=== PATIENT | male | born 1960 | race Hispanic/Latino ===

== ENCOUNTER 2019-06-14 02:02 | Inpatient (IN) | payer MEDICARE ==
[2019-06-14 02:28] LABS: #Basophils 0.1 thou/uL (0.0-0.2); #Eosinphils 0.1 thou/uL (0.0-0.7); #Lymphocytes 1.2 thou/uL (1.20-3.40); #Monocytes 1.4 thou/uL (0.11-0.59); #Neutrophils 10.6 thou/uL (1.40-6.50); %Basophils 0.5 % (0.0-1.0); %Eosinophils 0.5 % (0.0-10.0); %Lymphocytes 9.1 % (21.0-51.0); %Monocytes 10.8 % (0.0-10.0); %Neutrophils 79.2 % (42.0-75.0); Mean Corpuscular HGB CONC 31.3 g/dL (32.0-36.0); Mean Corpuscular Hemoglobin 23.9 pg (27.0-31.0); Mean Corpuscular Volume 76.1 fL (78.0-98.0); Mean Platelet Volume 9.9 fL (7.4-10.4); Platelet Count 271 thou/uL (130-400); RBC Distribution Width 17.5 % (11.5-14.5); Red Blood Cell (RBC) Count 3.77 mill/uL (4.70-6.10); White Blood Cell (WBC) Count 13.4 thou/uL (4.8-10.8)
[2019-06-14 02:48] LABS: ALT (SGPT) 30 U/L (8-55); AST (SGOT) 39 U/L (5-34); Albumin 3.3 g/dL (3.5-5.0); Alkaline Phosphatase 63 U/L (40-110); Anion Gap 16 mmol/L (10-20); BUN (Urea Nitrogen) 35 mg/dL (8.4-25.7); Bilirubin, Total 0.5 mg/dL (0.2-1.2); CK (CPK) 73 U/L (30-200); Calc. Creatinine Clearance 0 mL/min (70-130); Calcium 8.5 mg/dL (7.8-10.44); Carbon Dioxide 20 mmol/L (22-29); Chloride 107 mmol/L (98-107); Estimated GFR-MDRD 23; Globulin 3.1 g/dL (2.4-3.5); Glucose 223 mg/dL (70-105); Magnesium 1.9 mg/dL (1.6-2.6); Potassium 4.6 mmol/L (3.5-5.1); Protein, Total 6.4 g/dL (6.0-8.3); Sodium 138 mmol/L (136-145)
[2019-06-14 03:11] LABS: CKMB 1.3 ng/mL (0-6.6)
--- NOTE | 2019-06-14 04:08 | PDOC.FPRHP ---
- History of Present Illness Chief Complaint: Arrhythmia History of Present Illness: Pt is a 58 yo male who recently had an AICD placed 4 months ago and was woken twice in his sleep secondary to defibrillation. After the second he decided to be seen in the emergency department. This has never happened before. He also had worsening shortness of breath requiring oxygen in the emergency department. His LE edema was stable. He denied chest pain. In the ED cardiology was consulted who wanted Laurie consulted in the am. The interrogation revealed SVT vs Vtach. - Allergies/Adverse Reactions Allergies Allergy/AdvReac Type Severity Reaction Status Date / Time ciprofloxacin [From Cipro] Allergy Severe Nausea Unverified 06/14/19 04:09 - Home Medications Medication Instructions Recorded Confirmed Type Aspirin [Ecotrin] 81 mg PO DAILY 06/14/19 06/14/19 History Atorvastatin Calcium 80 mg PO HS 06/14/19 06/14/19 History Carvedilol [Coreg] 6.25 mg PO BID 06/14/19 06/14/19 History Clopidogrel Bisulfate [Plavix] 75 mg PO DAILY 06/14/19 06/14/19 History Fenofibrate Nanocrystallized 145 mg PO DAILY 06/14/19 06/14/19 History [Fenofibrate] Furosemide [Lasix] 40 mg PO DAILY 06/14/19 06/14/19 History Gabapentin 300 mg PO BID 06/14/19 06/14/19 History Insulin Glargine [Lantus] 20 units SC HS 06/14/19 06/14/19 History Isosorbide Mononitrate [Isosorbide 30 mg PO DAILY 06/14/19 06/14/19 History Mononitrate ER] Metoprolol Succinate [Toprol XL] 25 mg PO DAILY 06/14/19 06/14/19 History Pantoprazole Sodium [Protonix] 20 mg PO DAILY 06/14/19 06/14/19 History Polyethylene Glycol 3350 [Miralax] 17 gm PO DAILY PRN 06/14/19 06/14/19 History Sevelamer Carbonate 800 mg PO TID 06/14/19 06/14/19 History - History PMHx: CABG 2018, HTN, HLD, DM, CKD IV PSHx: R BKA, L Ankle FHx:non-contributory Social: Quit tobacco 2 years ago and smoked 1 ppd at most, denies drugs, denies alcohol - Review of Systems General: denies: fever/chills, weight/appetite/sleep changes Eyes: denies: eye pain, vision changes ENT: denies: nasal congestion, rhinorrhea Respiratory: denies: cough, congestion Cardiovascular: reports: edema. denies: chest pain, palpitation Gastrointestinal: denies: nausea, vomiting, diarrhea, constipation Genitourinary: denies: incontinence, dysuria Skin: denies: rashes, lesions Musculoskeletal: denies: pain, tenderness Neurological: denies: numbness, syncope Psychological: denies: anxiety, depression - Vital signs BP: 142/82 HR: 74 RR: 20 Tmax: 99.1 Pox: 99% on 2L Wt: 92 kg - Physical Exam Constitutional: NAD, awake, alert and oriented HEENT: PERRLA, EOMI Neck: FROM, trachea midline Heart: RRR, normal S1/S2 -Heart: 3 + pitting edema -Lungs: poor air movement, difficult to assess due to lack of ability to sit up Abdomen: soft, non-tender Musculoskeletal: normal structure, ROM grossly normal Neurological: no focal deficit, CN II-XII intact Skin: no rash/lesions, no jaundice Heme/Lymphatic: no purpura, no petechia Psychiatric: normal mood and affect, good judgment and insight FMR H&P: Results - Labs Result Diagrams: 06/14/19 02:16 06/14/19 02:16 Lab results: WBC 13.4 thou/uL (4.8-10.8) H 06/14/19 02:16 Hgb 9.0 g/dL (14.0-18.0) L 06/14/19 02:16 Hct 28.7 % (42.0-52.0) L 06/14/19 02:16 MCV 76.1 fL (78.0-98.0) L 06/14/19 02:16 Plt Count 271 thou/uL (130-400) 06/14/19 02:16 Neutrophils % 79.2 % (42.0-75.0) H 06/14/19 02:16 Sodium 138 mmol/L (136-145) 06/14/19 02:16 Potassium 4.6 mmol/L (3.5-5.1) 06/14/19 02:16 Chloride 107 mmol/L (98-107) 06/14/19 02:16 Carbon Dioxide 20 mmol/L (22-29) L 06/14/19 02:16 BUN 35 mg/dL (8.4-25.7) H 06/14/19 02:16 Creatinine 2.87 mg/dL (0.7-1.3) H 06/14/19 02:16 Glucose 223 mg/dL (70-105) H 06/14/19 02:16 Calcium 8.5 mg/dL (7.8-10.44) 06/14/19 02:16 Total Bilirubin 0.5 mg/dL (0.2-1.2) 06/14/19 02:16 AST 39 U/L (5-34) H 06/14/19 02:16 ALT 30 U/L (8-55) 06/14/19 02:16 Alkaline Phosphatase 63 U/L (40-110) 06/14/19 02:16 Creatine Kinase 73 U/L (30-200) 06/14/19 02:16 CK-MB (CK-2) 1.3 ng/mL (0-6.6) 06/14/19 02:16 B-Natriuretic Peptide 3764.7 pg/mL (0-100) H 06/14/19 02:16 Serum Total Protein 6.4 g/dL (6.0-8.3) 06/14/19 02:16 Albumin 3.3 g/dL (3.5-5.0) L 06/14/19 02:16 - Radiology Interpretation Chest x-ray Status: image reviewed by me, report reviewed by me Additional comment: perihilar congestion FMR H&P: A/P - Problem List (1) HTN (hypertension) Current Visit: Yes Status: Acute Code(s): I10 - ESSENTIAL (PRIMARY) HYPERTENSION (2) Hx of CABG Current Visit: Yes Status: Acute (3) HLD (hyperlipidemia) Current Visit: Yes Status: Acute Code(s): E78.5 - HYPERLIPIDEMIA, UNSPECIFIED (4) Diabetes mellitus Current Visit: Yes Status: Acute Code(s): E11.9 - TYPE 2 DIABETES MELLITUS WITHOUT COMPLICATIONS (5) CKD (chronic kidney disease), stage IV Current Visit: Yes Status: Acute Code(s): N18.4 - CHRONIC KIDNEY DISEASE, STAGE 4 (SEVERE) (6) Congestive heart failure Current Visit: Yes Status: Acute Code(s): I50.9 - HEART FAILURE, UNSPECIFIED - Plan # Arrhythmia SVT vs V-Tach - consulted cards; appreciate recs - consult Dr. Sullivan, placed AICD - amiodarone initiated # Acute on Chronic Heart Failure - lasix given - continue home meds # HTN - continue home meds # HLD - continue home meds # DM - continue home meds # CKD IV - stable Day team will restart home medications, appreciate their time. Dispo: admit to tele inpatient FMR H&P: Upper Level - Pertinent history 58 year old male presents after his AICD fired while sleeping two times. After first time AICD fired, patient went back to sleep. Upon the second time firing, patient decided he ought to seek care. Patient denies any chest pain. He endorses shortness of breath significant enough that it is inhibiting him from being able to speak in full sentences. He can barely get one to two words out without becoming short of breath. Patient endorses lower extremity swelling, although he states it is not much worse than it has been in the past. Patient denies cough, congestion, fever, chills. Patient had AICD placed approximately 4 months ago. His primary electrical manufacturing technician is Dr. Mcgrath. Dr. Gonzalez was consulted down in ED and recommends patient be started on amiodarone drip and advised that Dr. Sullivan be called in the morning. Patient was seen 12/2018 at which time he was noted to have EF 15-20%. Patient has AICD. He was not wearing lifevest regularly prior to last visit. Patient noted to have epileptiform activity on EEG during hospitalization in 2018. He was started on Keppra at that time. - Pertinent findings General: Alert and oriented x3. Diaphoretic. Difficulty speaking in full sentence without becoming short of breath. HEENT: Diaphoretic. MMM. Card: Irregular rhythm. No murmur. Resp: Decreased breath sounds throughout. Mild coarse rhonchi, although very difficult to appreciate given he was having difficulty taking deep breaths. Short of breath with speaking. Ext: 2+ pitting edema of LLE. AKA of RLE. Skin: No appreciable rashes. - Plan Date/Time: 06/14/19 5511 Lisa De Leonon, have evaluated this patient and agree with findings/plan as outlined by international project engineer resident. Pertinent changes/additions are listed here. Acute hypoxic respiratory failure 2/2 Acute on chronic HFrEF - Requiring 2L NC - BNP 3764 - CXR with pulmonary edema, no evidence of pneumonia - Strict I&O's, daily weights - Fluid restriction 1800 mL - HH diet - Echo 11/2018 with EF 15-20% - AICD in place Nonsustained tachycardia - SVT vs. VT; unable to determine from interrogation per ED physician - Dr. Gonzalez consulted; Amiodarone drip started - Consult Laurie AM - AICD placed 4 months ago - Arrhythmia noted on auscultation - EKG - AICD fired x2 DM type II - Noncompliant with medications - Restart home medications - ACHS accuchecks; adjust medications as necessary - CC diet HTN - Continue home medications HLD - Continue home medications CAD s/p CABG - Continue home medications CKD stage IV - BUN 33, Cr 2.87 - GFR 23 - Avoid nephrotoxic agents Demand ischemia - Trop elevated to 0.063, continue to trend - Likely 2/2 CHF exacerbation and CKD Microcytic anemia - Hg 9.0, Hct 28.7 - MCV 76.1 - Iron studies if not done previously - Consider FOBT/recommend outpatient colonoscopy if not UTD Leukocytosis - No obvious sign of infection - Likely leukamoid reaction - No left shift, continue to trend DVT PPX: SCD's Code status: Full Dispo: Admit to telemetry. Anticipate LOS >48 hours. Addendum - Attending - Attending Attestation Date/Time: 06/14/19 3219 I personally evaluated the patient and discussed the management with Dr. Soto /Lei. I agree with the History, Examination, Assessment and Plan documented above with any addition or exceptions noted below.
[2019-06-14] MEDS ORDERED: Amiodarone 150 MG, Admixture Fee 1 EACH in Dextrose 5% in Water 100 ML IVPB SCH (04:15)
[2019-06-14] MEDS ORDERED: Amiodarone 150 MG/3 ML VIAL ONE (04:22)
[2019-06-14 06:00] LABS: Troponin I 0.048 ng/mL (< 0.028)
--- NOTE | 2019-06-14 07:19 | RAD ---
Exam: Chest one view HISTORY:Pain. Comparison: 12/13/2018 FINDINGS: Cardiac silhouette:Persistent cardiomegaly. Stable sternotomy wires. Pacemaker: Interval placement of a single lead right-sided pacemaker with lead termination in the reg ion right ventricle. Aorta: Unremarkable Pulmonary vessels: Normal Costophrenic angles: Clear LUNGS: No masses or consolidation. Pneumothorax: None Osseous abnormalities: None IMPRESSION: No acute cardiopulmonary process.
[2019-06-14 08:42] LABS: Troponin I 0.055 ng/mL (< 0.028)
[2019-06-14 08:46] LABS: Phosphorus 3.7 mg/dL (2.3-4.7)
[2019-06-14] MEDS ORDERED: HumaLOG 300 UNITS/3 ML VIAL SC PRN (08:53)
[2019-06-14] MEDS ORDERED: Dextrose 50% Abboject 50 ML SYRINGE SLOW IVP PRN (08:53)
[2019-06-14] MEDS ORDERED: Dextrose 5% in Water 1,000 ML IV PRN (08:53)
[2019-06-14 11:19] VITALS: BMI 31.2
[2019-06-14] MEDS ORDERED: Furosemide 40 MG/4 ML VIAL SLOW IVP SCH ×2 (11:25→21:00)
[2019-06-14] MEDS ORDERED: Polyethylene Glycol 3350 17 GM Packet PO PRN (11:25)
[2019-06-14] MEDS ORDERED: Clopidogrel Bisulfate 75 MG TAB PO SCH (11:30)
[2019-06-14] MEDS ORDERED: Carvedilol 6.25 MG TAB PO SCH (11:30)
[2019-06-14] MEDS ORDERED: Aspirin 81 mg Enteric Coated Tablet PO SCH (11:30)
--- NOTE | 2019-06-14 11:37 | CON ---
DATE OF CONSULTATION: 06/14/2019 ADDITIONAL REFERRING PHYSICIAN: Dr. Mack, ER physician HISTORY OF PRESENT ILLNESS: I am seeing Mr. Mcneal at our [facility] emergency room as an Electrophysiology solutions market consultant. His problems are: 1. Fast ventricular tachycardia with cycle length 210 to 240 milliseconds, prompting ICD shock. 2. History of chronic systolic congestive heart failure with ischemic cardiomyopathy. a. 2D echo from 12/15/2018 reveals LVEF 15% to 20%, mild LVH, mild MR, moderate left atrial enlargement, mild TR. b. Currently he has elevated BNP, possible fluid overload. c. CABG x2 vessels in 2009. 3. Peripheral vascular disease. a. Poorly healing ulcers with right BKA. b. Advanced distal disease on angiogram, 09/20/2018, bilaterally. 4. Status post single-chamber ICD implant on February 06, 2019, of [facility] [employer] device. 5. History of renal insufficiency with a BUN 23 and creatinine 2.7 in December 2018 and currently at baseline. 6. History of RV dysfunction. 7. History of seizure disorder. 8. History of diabetes. 9. Hypertension. ALLERGIES: NONE. MEDICATIONS: At home included 1. Hydralazine. 2. Carvedilol 6.25 mg twice a day. 3. Gabapentin. 4. Sevelamer. 5. Clopidogrel 75 mg daily. 6. Fenofibrate. 7. Pantoprazole. 8. Lipitor. SUBJECTIVE: Mr. Mcneal was admitted through the ER due to an ICD shock which occurred last night, woke him up from his sleep. He did not feel good today before, overall with generalized weakness. He denies fever or cough. He denied angina, but had some mild fluid overload signs with lower extremity edema. His weight remained steady according to him. He has had no additional gastrointestinal or respiratory symptoms. Rest of 12-point system otherwise unremarkable. In the ER, he was noted to have frequent PVCs and short nonsustained ventricular run was also noted. He was started on IV amiodarone and since he is a stable. PAST MEDICAL HISTORY: As above. 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 SOCIAL HISTORY: The patient has history of smoking, quit in 2018. Denies EtOH or drug abuse. FAMILY HISTORY: Noncontributory. PHYSICAL EXAMINATION: VITAL SIGNS: Blood pressure 131/81, heart rate 78, respiration is 20, oxygen saturation is 96%. GENERAL: Alert, oriented man, in no apparent distress. NECK: Supple. Jugular veins are slightly distended. CHEST: Coarse without crackles. HEART: Sounds are regular to rate and rhythm with occasional ectopy heard. No murmur or gallop. ABDOMEN: Benign. Bowel sounds are positive. EXTREMITIES: Lower extremity without clubbing or cyanosis. Right BKA appreciated. Lower extremity edema is noted on the left lower extremity. SKIN: Also left precordial ICD insertion is well healed. NEUROLOGIC: He is nonfocal. MUSCULOSKELETAL: No joint swelling or deformities apart from the BKA. SKIN: Without rash. Midsternal scar is also well healed. LABORATORY DATA: EKG reviewed, revealing sinus rhythm, rate of 86 beats per minute with frequent monomorphic PVCs. The chest x-ray shows no acute cardiopulmonary process. The white count is 13.4, hemoglobin 9, platelet count is 271. Sodium 138, potassium 4.6, BUN is 35, creatinine 2.87. AST and ALT are 39 and 30. BNP is 3764. Troponin I 0.063, 0.048, 0.055. ASSESSMENT AND PLAN: Mr. Mcneal is a 58-year-old man with history of chronic systolic congestive heart failure with ischemic cardiomyopathy, prior bypass grafting. His LVEF is 15% to 20% on most recent echo available to me. He has underwent a prophylactic ICD implantation in last January with a single-chamber [facility] device. He received ICD shocks with two ventricular tachycardia based on the ICD interrogation reviewed today. The device is otherwise functioning adequately. Another ventricular tachycardia episodes are noted apart from this morning's on June 01, which was not symptomatic and was shock terminated. Nonsustained ventricular tachycardia episodes are also seen. The VT episodes are rapid with cycle length of 210 to 240 milliseconds, but appears to be monomorphic. The shock promptly terminated the arrhythmia. Since he is doing well on initial IV amiodarone therapy, I think it is reasonable to continue that. Monitor QT prolongation and also monitor PVC burden which could have contributed to induction of his arrhythmia. The reason for the ICD shock is unclear, but possibly fluid overload could play a role. He has history of severely reduced LVEF and mild signs of fluid overload currently. Gentle diuresis could be reasonable. Further ischemic workup if felt appropriate as per Dr. Mcgrath. Single-chamber ICD currently with adequate function. Continue routine monitoring. Point borderline troponin I is possibly due to the ICD shock. Chronic renal insufficiency, stable. Diabetes, hypertension as per primary team. PLAN: Continue IV amiodarone over a day, then consider switching to p.o. amiodarone taper. Intermediate term of amiodarone therapy, consideration of weaning versus PVC ablation could be made in the future. We will follow up with you. Thanks for the consult. Job ID: [id number]
[2019-06-14] MEDS ORDERED: Isosorbide Mononitrate (ER) 30 MG TAB PO SCH (11:45)
[2019-06-14] MEDS ORDERED: Gabapentin 300 MG CAP PO SCH (11:45)
[2019-06-14] MEDS ORDERED: Fenofibrate Nanocrystallized 145 MG TAB PO SCH (11:45)
[2019-06-14] MEDS: Amiodarone 450 MG, Admixture Fee 1 EACH in Dextrose 5% in Water 250 ML IVPB SCH (14:11)
[2019-06-14] MEDS: Sevelamer Carbonate 800 MG TAB PO SCH ×2 (16:56→20:22)
[2019-06-14] MEDS: Carvedilol 6.25 MG TAB PO SCH (20:22)
[2019-06-14] MEDS: Atorvastatin Calcium 40 MG TAB PO SCH (20:22)
[2019-06-14] MEDS: Gabapentin 300 MG CAP PO SCH (20:23)
[2019-06-14] MEDS: Insulin Glargine 20 UNITS in Pre-Filled Syringe 1 EACH SC SCH (20:30)
[2019-06-15 04:51] LABS: #Eosinphils 0.3 thou/uL (0.0-0.7); #Lymphocytes 1.4 thou/uL (1.20-3.40); #Neutrophils 7.9 thou/uL (1.40-6.50); %Basophils 0.4 % (0.0-1.0); %Eosinophils 2.5 % (0.0-10.0); %Lymphocytes 13.4 % (21.0-51.0); %Monocytes 9.1 % (0.0-10.0); %Neutrophils 74.6 % (42.0-75.0); Hemoglobin 8.3 g/dL (14.0-18.0); Mean Corpuscular HGB CONC 32.5 g/dL (32.0-36.0); Mean Corpuscular Hemoglobin 24.5 pg (27.0-31.0); Mean Corpuscular Volume 75.5 fL (78.0-98.0); Mean Platelet Volume 10.3 fL (7.4-10.4); Platelet Count 243 thou/uL (130-400); RBC Distribution Width 17.4 % (11.5-14.5); Red Blood Cell (RBC) Count 3.37 mill/uL (4.70-6.10); White Blood Cell (WBC) Count 10.6 thou/uL (4.8-10.8)
[2019-06-15 05:30] LABS: Anion Gap 14 mmol/L (10-20); BUN (Urea Nitrogen) 42 mg/dL (8.4-25.7); Calc. Creatinine Clearance 31 mL/min (70-130); Calcium 8.9 mg/dL (7.8-10.44); Carbon Dioxide 21 mmol/L (22-29); Chloride 105 mmol/L (98-107); Estimated GFR-MDRD 19; Glucose 183 mg/dL (70-105); Magnesium 1.9 mg/dL (1.6-2.6); Sodium 136 mmol/L (136-145)
[2019-06-15] MEDS: Amiodarone 450 MG, Admixture Fee 1 EACH in Dextrose 5% in Water 250 ML IVPB SCH (07:13)
--- NOTE | 2019-06-15 07:39 | CON ---
DATE OF CONSULTATION: Another MRN for this same patient is [id number]. REASON FOR CONSULTATION: ICD shock. HISTORY OF PRESENT ILLNESS: Mr. Mcneal is a very pleasant 58-year-old gentleman, who comes to the hospital for receiving a shock from his AICD. He had his AICD placed last year. He had not received any therapies until yesterday. He actually had an appropriate shock. It was a fast ventricular rate that receives an AICD shock, but he has an ischemic cardiomyopathy with an EF at 15% to 20%. This was from an echo back in November. He had an acute NE last year. He has had bypass x2 in 2009. I have offered a heart catheterization on him several times, but he is not wanting to do it secondary to his renal insufficiency. His last creatinine was 2.7 in December of last year; however, today, it is a little bit higher at 2.89. He has been started on amiodarone drip already and has not had anymore VT or VF. He has several PVCs, which he has had in the past. PAST MEDICAL HISTORY: 1. Ischemic cardiomyopathy with an EF of 15% to 20%. 2. AICD placement last year. 3. Status post CABG in 2009. 4. Severe bilateral PVD, status post BKA. 5. Acute CVA. 6. Chronic kidney disease, stage 4. 7. Hypertension. PAST SURGICAL HISTORY: 1. Right BKA in September of last year. 2. CABG x2 in 2009. FAMILY HISTORY: Noncontributory. SOCIAL HISTORY: Quit smoking in 2018. No alcohol or drugs. OUTPATIENT MEDICATIONS: 1. Sevelamer. 2. MiraLAX. 3. Protonix 20 mg a day. 4. Toprol-XL 25 mg a day. 5. Isosorbide mononitrate 30 mg a day. 6. Lantus insulin 20 units subcutaneously at bedtime. 7. Gabapentin. 8. Lasix 40 mg a day. 9. Fenofibrate 145 mg a day. 10. Plavix 75 mg a day. 11. Atorvastatin 80 mg at bedtime. 12. Aspirin 81 a day. 13. Carvedilol 6.25 b.i.d. ALLERGIES: CIPRO GIVES HIM SEVERE NAUSEA. REVIEW OF SYSTEMS: A 12-point review of systems was done and was all negative unless stated in the history of present illness. PHYSICAL EXAMINATION: VITAL SIGNS: Temperature 98.0, pulse 62, respiratory rate 18, saturating 97% on room air, blood pressure 135/80. GENERAL: Awake, alert, and oriented x3, in no distress. HEENT: Normocephalic and atraumatic. NECK: Supple. LUNGS: Clear. CARDIOVASCULAR: S1 and S2. No S3 or S4. There is a grade 2/6 systolic murmur at the right upper sternal border. ABDOMEN: Soft. Positive bowel sounds. EXTREMITIES: 1+ edema in the left leg. Right BKA. SKIN: Warm and dry. LABORATORY DATA: Laboratory work was reviewed. CBC with a white count of 13, hemoglobin 9, hematocrit 28, platelet count of 271. Chemistry with a creatinine of 2.87, GFR of 23, glucose of 223, normal sodium and potassium at 4.6 potassium, phosphorus 3.7, magnesium 1.9. Troponin is indeterminate at 0.06, 0.04, and 0.05. BNP of 3764. Albumin of 3.3. EKG was reviewed. ICD was reviewed. He had VT, very fast, successfully converted to sinus with AICD shock. ASSESSMENT: 1. Sustained ventricular tachycardia. 2. Appropriate automatic implantable cardioverter-defibrillator discharge. 3. Ischemic cardiomyopathy, ejection fraction of 15% to 20%. 4. History of coronary artery disease. No acute coronary syndrome at this time. 5. Peripheral vascular disease. 6. Diabetes. 7. Hypertension. PLAN: 1. Agree with amiodarone. We will continue IV drip until tomorrow and switch to p.o. load at that time at 400 mg twice a day for 7 days, then 200 mg a day. 2. We will continue IV Lasix for now. He is mildly volume overload. Thank you for letting us to participate in the care of the patient. We will follow. Most likely, home in the next 48 hours. Job ID: [id number]
--- NOTE | 2019-06-15 07:47 | PDOC.FM ---
- Subjective Subjective: Doing well this morning, states feels much improved. No acute events overnight. Verbalized understanding of addition of Amio and appropriate titration of meds. States he also realizes he is heading towards dialysis, but unsure if he wants to pursue dialysis at this time and plans to discuss with . No Cp, SOB, n/v , fever/chills. Tolerating PO well. Ambulating with assist. - Objective MAR Reviewed: Yes Vital Signs & Weight: Vital Signs (12 hours) Temp Pulse Resp BP Pulse Ox 06/15/19 04:00 98.9 F 61 16 130/63 96 06/15/19 00:15 65 116/56 L 95 Weight Weight 89.267 kg I&O: 06/14/19 06/15/19 06/16/19 06:59 06:59 06:59 Intake Total 800 Output Total 560 Balance 240 Result Diagrams: 06/15/19 04:31 06/15/19 04:31 EKG Reviewed by me: Yes (occasional PVC, no acute events on Tele) Phys Exam - Physical Examination Constitutional: NAD (resting comfortably, sitting on side of bed) HEENT: moist MMs Neck: supple Respiratory: no wheezing, no rales, no rhonchi, clear to auscultation bilateral Cardiovascular: RRR, no significant murmur, no rub Gastrointestinal: soft, non-tender, no distention, positive bowel sounds R BKA Neurological: moves all 4 limbs Psychiatric: normal affect, A&O x 3 Dx/Plan (1) CKD (chronic kidney disease), stage IV Code(s): N18.4 - CHRONIC KIDNEY DISEASE, STAGE 4 (SEVERE) Status: Acute (2) Congestive heart failure Code(s): I50.9 - HEART FAILURE, UNSPECIFIED Status: Acute (3) Diabetes mellitus Code(s): E11.9 - TYPE 2 DIABETES MELLITUS WITHOUT COMPLICATIONS Status: Acute - Plan Plan: 58yo CM with h/o HFrEF, DMII, CKD IV presents for acute hypoxic respiratory failure 2/2 acute on chronic HFrEF and vtach s/p AICD shock #Acute hypoxic respiratory failure 2/2 acute on chronic HFrEF and vtach s/p AICD shock - AICD placed 4 months ago, had 2 shocks prior to presentation - Cards consulted from ED, placed on Amio gtt, known to Dr. Alcides, plan to transition to PO, cont diuresis, apprec recs - EP, Dr. Sullivan, consulted, agreed with [facility], [facility] recs - No acute events overnight, occasional PVC on tele - initially requiring O2, now >95% on 2L, will wean this AM - BNP 3764. CXR with pulm edema, no PNA - IV lasix, will transition back to PO this AM as appears euvolemic on exam - strict I's and O's. Fluid restriction, HH diet - cont other home HF meds #IDDMII - noncompliant with meds - cont home regime - Hyperglycemic protocol with ACHS accuchecks #PEDRITO on CKD IV - Cr 2.87 -> 3.3 with GFR 19, likely slightly worse with Lasix and possible over diuresis, will transition back to PO lasix - Likely heading towards dialysis, pt has had this discussion before and plans to think it over with - will need close OP f/u, known to Dr. Rodriguez #Elevated trop - 0.063 -> 0.048. 2/2 HFrEf and CKD IV, stable #Multiple admissions, poor compliance, worsening chronic conditions - Palliative care consulted to assist with goals of care - CM, apprec assistance #HTN, HLD, CAD s/p CABG - cont home meds #Microcytic anemia - chonic, stable Code: Full PCP: DIANN Moon IVF: SL Diet: CC, fluid restricted, HH VTE: SCDs Dispo: Admitted to telemetry. Transitioning to PO meds today. Improved. Anticipate discharge in next 1-2days. Addendum - Attending - Attending Attestation Date/Time: 06/15/19 8071 I personally evaluated the patient and discussed the management with Dr. Coles. I agree with the History, Examination, Assessment and Plan documented above with any addition or exceptions noted below.
[2019-06-15] MEDS: Sevelamer Carbonate 800 MG TAB PO SCH ×3 (09:27→20:53)
[2019-06-15] MEDS: Gabapentin 300 MG CAP PO SCH ×2 (09:27→20:51)
[2019-06-15] MEDS: Fenofibrate Nanocrystallized 145 MG TAB PO SCH (09:27)
[2019-06-15] MEDS: Furosemide 40 MG TAB PO SCH (09:28)
[2019-06-15] MEDS: Carvedilol 6.25 MG TAB PO SCH ×2 (09:28→20:52)
[2019-06-15] MEDS: Clopidogrel Bisulfate 75 MG TAB PO SCH (09:28)
[2019-06-15] MEDS: Aspirin 81 mg Enteric Coated Tablet PO SCH (09:28)
[2019-06-15] MEDS: HumaLOG 300 UNITS/3 ML VIAL SC PRN ×2 (09:29→11:46)
[2019-06-15] MEDS: Isosorbide Mononitrate (ER) 30 MG TAB PO SCH (09:29)
[2019-06-15] MEDS ORDERED: Amiodarone 200 MG TAB PO SCH (12:15)
--- NOTE | 2019-06-15 13:24 | PDOC.EP ---
- Subjective Date: 06/15/19 Time: 08:00 Interval History: follow up for VT, ICD shocks. Patient voices not ICD or rhythm related complaints today. - Review of Systems Constitutional: denies: chills, fever, malaise, sweats, weakness, other Cardiology: denies: chest pain, edema, heart racing, light headedness, passing out Gastrointestinal: denies: abdominal pain, constipation, diarrhea, nausea, vomitting - Objective Allergies/Adverse Reactions: Allergies Allergy/AdvReac Type Severity Reaction Status Date / Time ciprofloxacin [From Cipro] Allergy Severe Nausea Verified 06/14/19 12:21 Current Medications Amiodarone HCl (Cordarone) 400 mg PO BID [facility] Amiodarone HCl (Cordarone) 400 mg PO NOW [facility] Stop: 06/15/19 14:15 Last Admin: 06/15/19 12:21 Dose: 400 mg Aspirin (Ecotrin) 81 mg PO DAILY [facility] Last Admin: 06/15/19 09:28 Dose: 81 mg Atorvastatin Calcium (Lipitor) 80 mg PO [facility] Last Admin: 06/14/19 20:22 Dose: 80 mg Carvedilol (Coreg) 6.25 mg PO BID [facility] Last Admin: 06/15/19 09:28 Dose: 6.25 mg Clopidogrel Bisulfate (Plavix) 75 mg PO DAILY [facility] Last Admin: 06/15/19 09:28 Dose: 75 mg Dextrose/Water (Dextrose 50%) 25 gm SLOW IVP PRN PRN PRN Reason: Hypoglycemia Fenofibrate (Tricor) 145 mg PO DAILY [facility] Last Admin: 06/15/19 09:27 Dose: 145 mg Furosemide (Lasix) 40 mg PO DAILY [facility] Last Admin: 06/15/19 09:28 Dose: 40 mg Gabapentin (Neurontin) 300 mg PO BID [facility] Last Admin: 06/15/19 09:27 Dose: 300 mg Glucagon (Glucagon) 1 mg IM PRN PRN PRN Reason: Hypoglycemia Dextrose/Water (D5w) 1,000 mls @ 0 mls/hr IV .Q0M PRN PRN Reason: Hypoglycemia Insulin Glargine 20 units/ (Miscellaneous Medication) 0.2 mls @ 0 mls/hr SC [facility] Last Admin: 06/14/19 20:30 Dose: 0.2 mls Insulin Human Lispro (Humalog) 0 units SC .MILD SLIDING SCALE PRN PRN Reason: Mild Correctional Scale Last Admin: 06/15/19 11:46 Dose: 2 unit Insulin Human Lispro (Humalog) 0 units SC .BEDTIME SLIDING SC PRN PRN Reason: Bedtime Correctional Scale Isosorbide Mononitrate (Imdur Er) 30 mg PO DAILY [facility] Last Admin: 06/15/19 09:29 Dose: 30 mg Pantoprazole Sodium (Protonix) 40 mg PO DAILY [facility] Last Admin: 06/15/19 09:28 Dose: 40 mg Polyethylene Glycol (Miralax) 17 gm PO DAILYPRN PRN PRN Reason: Constipation Sevelamer Carbonate (Renvela) 800 mg PO TID [facility] Last Admin: 06/15/19 09:27 Dose: 800 mg Sodium Chloride (Flush - Normal Saline) 10 ml IVF Q12HR [facility] Last Admin: 06/15/19 09:30 Dose: 10 ml Sodium Chloride (Flush - Normal Saline) 10 ml IVF PRN PRN PRN Reason: Saline Flush Vital Signs & Weight: Vital Signs Temp Pulse Resp BP Pulse Ox 06/15/19 09:03 97.8 F 62 20 123/68 93 L 06/15/19 08:20 96 06/15/19 04:00 98.9 F 61 16 130/63 96 Weight 196 lb 12.8 oz I/O: I/O 06/14/19 06/15/19 06/16/19 06:59 06:59 06:59 Intake Total 800 Output Total 560 Balance 240 - Physical Exam General: alert & oriented x3, appears well, no apparent distress, speech clear, affect appropriate HEENT: mucus membranes moist, normocephaly Neck: supple neck, midline trachea, no JVD/HJR Cardiology: regular rate and rhythm, no murmur, PMI nondisplaced Lungs: clear to auscultation, normal breath sounds, no wheeze, rales, rhonchi Neurology: cranial nerve 2-12 intact, sensory function intact, no lateralizing findings - Labs Result Diagrams: 06/15/19 04:31 06/15/19 04:31 - EKG Interpretation EKG Method: Telemetry EKG shows: Sinus rhythm (PVCs) - Assessment/Plan Assessment/Plan: 1. Fast ventricular tachycardia with cycle length 210 to 240 milliseconds, prompting ICD shock. 2. History of chronic systolic congestive heart failure with ischemic cardiomyopathy. a. 2D echo from 12/15/2018 reveals LVEF 15% to 20%, mild LVH, mild MR, moderate left atrial enlargement, mild TR. b. Currently he has elevated BNP, possible fluid overload. c. CABG x2 vessels in 2009. 3. Peripheral vascular disease. a. Poorly healing ulcers with right BKA. b. Advanced distal disease on angiogram, 09/20/2018, bilaterally. 4. Status post single-chamber ICD implant on February 06, 2019, of [facility] [employer] device. 5. Renal insufficiency with a BUN 23 and creatinine 2.7 in December 2018 and currently at baseline. 6. Hypertension. PVCs and rare short NSVT runs seen on tele overnight. No sustained events or defibrillations required. Continue amiodarone loading. QT ~400msec
--- NOTE | 2019-06-15 15:59 | PDOC.PALCO ---
Palliative Care Consult - Consult Details Requesting Physician: Dr Coles Reason for Consult: goals of care, assistance with communication prognosis/ disease Family Members Present: None - Allergies Allergies/Adverse Reactions: Allergies Allergy/AdvReac Type Severity Reaction Status Date / Time ciprofloxacin [From Cipro] Allergy Severe Nausea Verified 06/14/19 12:21 - Objective Vital Signs: Vital Signs - Most Recent Temp Pulse Resp BP Pulse Ox 97.8 F 61 18 127/70 97 06/15/19 11:42 06/15/19 11:42 06/15/19 11:42 06/15/19 11:42 06/15/19 11:42 - Plan/Recommendations Plan: Conversation with patient in relation to disease progression and goal of care with consideration of multiple morbidities. Patient self reported non compliance with medication in the past and hesitation of eventual dialysis. Expressed uncertainty of his consistency if he required dialysis for management of renal disease. Consideration may be given to having Sharyn Ramirez with the mobile team / If his PCP is a [facility] PCP Sharyn Ramirez [employer] may follow. This may help with initially improving compliant habits for medication management. Patient aware that compliancy with medications, medical appointments and diet are pivotal with giving distance to need for dialysis. If Mr Mcneal eventually transition to need for dialysis we discussed the impact on daily living, he also is aware that if at any time he desires he could stop and elect Hospice to manage symptoms. Will place consult for teaching related to diet, reinforce optimal food choices not only for diabetic but renal function as well. [60] minutes spent on this encounter with >50% of the time in counseling and coordination of care. Thank you for this very appropriate consult.
--- NOTE | 2019-06-15 18:01 | PDOC.CPN ---
- Subjective Date: 06/15/19 Time: 17:59 Interval history: Doing better. Feels well. - Review of Systems General: denies: fever/chills, weight/appetite/sleep changes, night sweats, fatigue Respiratory: denies: cough, congestion, shortness of breath, exercise intolerance Cardiovascular: denies: chest pain, palpitation, edema, paroxysmal nocturnal dyspnea, orthopnea Gastrointestinal: denies: nausea, vomiting, diarrhea, constipation, abd pain, GI bleeding Musculoskeletal: denies: pain, tenderness, stiffness, swelling, arthritis/ arthralgias Neurological: denies: numbness, syncope, seizure, weakness - Objective Allergies/Adverse Reactions: Allergies Allergy/AdvReac Type Severity Reaction Status Date / Time ciprofloxacin [From Cipro] Allergy Severe Nausea Verified 06/14/19 12:21 Visit Medications: Current Medications Amiodarone HCl (Cordarone) [address] [facility] Aspirin (Ecotrin) [address] [facility] Last Admin: 06/15/19 09:28 Dose: 81 mg Atorvastatin Calcium (Lipitor) 80 mg PO [facility] Last Admin: 06/14/19 20:22 Dose: 80 mg Carvedilol (Coreg) 6.[address] [facility] Last Admin: 06/15/19 09:28 Dose: 6.25 mg Clopidogrel Bisulfate (Plavix) [address] [facility] Last Admin: 06/15/19 09:28 Dose: 75 mg Dextrose/Water (Dextrose 50%) 25 gm SLOW IVP PRN PRN PRN Reason: Hypoglycemia Fenofibrate (Tricor) [address] [facility] Last Admin: 06/15/19 09:27 Dose: 145 mg Furosemide (Lasix) [address] [facility] Last Admin: 06/15/19 09:28 Dose: 40 mg Gabapentin (Neurontin) [address] [facility] Last Admin: 06/15/19 09:27 Dose: 300 mg Glucagon (Glucagon) 1 mg IM PRN PRN PRN Reason: Hypoglycemia Dextrose/Water (D5w) 1,000 mls @ 0 mls/hr IV .Q0M PRN PRN Reason: Hypoglycemia Insulin Glargine 20 units/ (Miscellaneous Medication) 0.2 mls @ 0 mls/hr SC [facility] Last Admin: 06/14/19 20:30 Dose: 0.2 mls Insulin Human Lispro (Humalog) 0 units SC .MILD SLIDING SCALE PRN PRN Reason: Mild Correctional Scale Last Admin: 06/15/19 11:46 Dose: 2 unit Insulin Human Lispro (Humalog) 0 units SC .BEDTIME SLIDING SC PRN PRN Reason: Bedtime Correctional Scale Isosorbide Mononitrate (Imdur Er) [address] [facility] Last Admin: 06/15/19 09:29 Dose: 30 mg Pantoprazole Sodium (Protonix) [address] [facility] Last Admin: 06/15/19 09:28 Dose: 40 mg Polyethylene Glycol (Miralax) 17 gm PO DAILYPRN PRN PRN Reason: Constipation Sevelamer Carbonate (Renvela) [address] [facility] Last Admin: 06/15/19 14:44 Dose: 800 mg Sodium Chloride (Flush - Normal Saline) [address] [facility] Last Admin: 06/15/19 09:30 Dose: 10 ml Sodium Chloride (Flush - Normal Saline) 10 ml IVF PRN PRN PRN Reason: Saline Flush Vital Signs & Weight: Vital Signs Temp Pulse Resp BP Pulse Ox 06/15/19 16:00 97.5 F L 57 L 16 123/69 95 06/15/19 11:42 97.8 F 61 18 127/70 97 06/15/19 09:03 97.8 F 62 20 123/68 93 L 06/15/19 08:20 96 Weight 196 lb 12.8 oz - Physical Exam General: alert & oriented x3 HEENT: mucus membranes moist Neck: supple neck Cardiac: regular rate and rhythm Lungs: clear to auscultation Neuro: grossly intact Abdomen: active bowel sounds Extremities: no edema Skin: clear Musculoskeletal: no pain - Labs Result Diagrams: 06/15/19 04:31 06/15/19 04:31 Troponin/CKMB CK-MB (CK-2) 1.3 ng/mL (0-6.6) 06/14/19 02:16 Troponin I 0.055 ng/mL (< 0.028) H 06/14/19 08:08 - Telemetry Sinus rhythms and dysrhythmias: sinus rhythm - Assessment/Plan Assessment/Plan: 1. VT 2. S/P AICD shock 3. Ischemic CM EF at 20-25% 4. CAD s/p CABG in 2009 5. CKD stage 4 PLAN: - Still not wanting to risk dialysis if we were to do LHC. Wants to continue medical therapy. No ACS so likely his VT is related to CMY. - CV stable otherwise. - Continue PO amiodarone load at 400 mg BID for 7 days total then 200 mg daily. - D/C home in the morning if he remains stable.
[2019-06-15] MEDS: Insulin Glargine 20 UNITS in Pre-Filled Syringe 1 EACH SC SCH (20:47)
[2019-06-15] MEDS: Atorvastatin Calcium 40 MG TAB PO SCH (20:48)
[2019-06-15] MEDS: Amiodarone 200 MG TAB PO SCH (20:50)
[2019-06-16 05:14] LABS: Anion Gap 12 mmol/L (10-20); BUN (Urea Nitrogen) 47 mg/dL (8.4-25.7); Calc. Creatinine Clearance 30 mL/min (70-130); Calcium 8.3 mg/dL (7.8-10.44); Carbon Dioxide 24 mmol/L (22-29); Chloride 104 mmol/L (98-107); Estimated GFR-MDRD 19; Glucose 138 mg/dL (70-105); Potassium 4.1 mmol/L (3.5-5.1); Sodium 136 mmol/L (136-145)
--- NOTE | 2019-06-16 07:30 | PDOC.FM ---
- Subjective Subjective: Doing well this morning, no acute events overnight. Tolerating PO well. Tolerating Amio well, switched to PO. In good spirits. Very eager for discharge. Denies any CP, fever/chills, n/v, dyspnea, LE edema. - Objective MAR Reviewed: Yes Vital Signs & Weight: Vital Signs (12 hours) Temp Pulse Resp BP BP Pulse Ox 06/16/19 04:00 98.6 F 60 23 H 138/81 92 L 06/15/19 23:59 60 131/73 06/15/19 20:52 116/64 06/15/19 20:00 96.3 F L 61 20 116/64 96 06/15/19 19:32 96 Weight Weight 87.679 kg I&O: 06/15/19 06/16/19 06/17/19 06:59 06:59 06:59 Intake Total 800 1660.2 Output Total 560 1250 Balance 240 410.2 Result Diagrams: 06/15/19 04:31 06/16/19 04:28 EKG Reviewed by me: Yes (Tele: No acute events) Phys Exam - Physical Examination Constitutional: NAD (resting comfortably, good spirits, eager for discharge) HEENT: moist MMs Neck: supple Respiratory: no wheezing, no rales, no rhonchi, clear to auscultation bilateral Cardiovascular: RRR, no rub Gastrointestinal: soft, non-tender, no distention, positive bowel sounds 1+ pitting LLE, R BKA Psychiatric: normal affect, A&O x 3 Dx/Plan (1) CKD (chronic kidney disease), stage IV Code(s): N18.4 - CHRONIC KIDNEY DISEASE, STAGE 4 (SEVERE) Status: Acute (2) Congestive heart failure Code(s): I50.9 - HEART FAILURE, UNSPECIFIED Status: Acute (3) Diabetes mellitus Code(s): E11.9 - TYPE 2 DIABETES MELLITUS WITHOUT COMPLICATIONS Status: Acute - Plan Plan: 58yo CM with h/o HFrEF, DMII, CKD IV presents for acute hypoxic respiratory failure 2/2 acute on chronic HFrEF and vtach s/p AICD shock #Acute hypoxic respiratory failure 2/2 acute on chronic HFrEF and vtach s/p AICD shock, resolved - Suspected 2/2 cardiomyopathy - AICD placed 4 months ago, had 2 shocks prior to presentation - Cards consulted from ED, placed on Amio gtt, known to Dr. Mcgrath, transitioned to PO for 400mg BID x7d then 200mg daily, apprec recs - EP, Dr. Sullivan, consulted, agreed with natanael, apprec recs - No acute events overnight, occasional PVC on tele - initially requiring O2, now >95% on 2L, will wean this AM - BNP 3764. CXR with pulm edema, no PNA - IV lasix initially, transitioned back to PO and appears euvolemic on exam - strict I's and O's. Fluid restriction, HH diet. Down 2kg from admission. - cont other home HF meds #IDDMII - noncompliant with meds - cont home regime - Hyperglycemic protocol with ACHS accuchecks #PEDRITO on CKD IV vs worsenign CKD - Cr 2.87 -> 3.3 with GFR 19, likely slightly worse with Lasix and possible over diuresis, Cr stable with switch to home lasix dose - Likely heading towards dialysis, pt has had this discussion before and plans to think it over with - will need close OP f/u, known to Dr. Rodriguez #Elevated trop - 0.063 -> 0.048. 2/2 HFrEf and CKD IV, stable #Multiple admissions, poor compliance, worsening chronic conditions - Palliative care consulted to assist with goals of care - CM, apprec assistance #HTN, HLD, CAD s/p CABG - cont home meds #Microcytic anemia - chonic, stable Code: Full PCP: DIANN Moon IVF: SL Diet: CC, fluid restricted, HH VTE: SCDs Dispo: Admitted to telemetry. Transitioned to PO meds. Improved. Anticipate discharge today pending clinical course. Addendum - Attending - Attending Attestation Date/Time: 06/16/19 1005 I personally evaluated the patient and discussed the management with Dr. Coles. I agree with the History, Examination, Assessment and Plan documented above with any addition or exceptions noted below.
[2019-06-16] MEDS: Carvedilol 6.25 MG TAB PO SCH (07:41)
[2019-06-16] MEDS: Amiodarone 200 MG TAB PO SCH (07:41)
[2019-06-16] MEDS: Fenofibrate Nanocrystallized 145 MG TAB PO SCH (07:41)
[2019-06-16] MEDS: Gabapentin 300 MG CAP PO SCH (07:41)
[2019-06-16] MEDS: Furosemide 40 MG TAB PO SCH (07:42)
[2019-06-16] MEDS: Sevelamer Carbonate 800 MG TAB PO SCH (07:42)
[2019-06-16] MEDS: Aspirin 81 mg Enteric Coated Tablet PO SCH (07:42)
[2019-06-16] MEDS: Clopidogrel Bisulfate 75 MG TAB PO SCH (07:42)
[2019-06-16] MEDS: Isosorbide Mononitrate (ER) 30 MG TAB PO SCH (07:42)
--- NOTE | 2019-06-16 11:38 | PQF ---
CLINICAL DOCUMENTATION IMPROVEMENT CLARIFICATION FORM: ICD-10 Updated PLEASE DO AN ADDENDUM TO THE PROGRESS NOTE WITH ANY DOCUMENTATION UPDATES OR ADDITIONS AND CARRY THROUGH TO DC SUMMARY. THANK YOU. DATE: 06/16/19 ATTN: DR. CRAFT Please exercise your independent, professional judgment in responding to the clarification form. Clinical indicators are provided on the bottom of this form for your review Please check appropriate box(s): HEART FAILURE: TYPE [ x ] Systolic / HFrEF [ ] Diastolic / HFpEF [ ] Combined Systolic / Diastolic [ ] Hypertensive Heart and Kidney disease [ ] Hypertensive Heart Disease [ ] Hypertensive Kidney Disease [ ] Other diagnosis [ ] Unable to determine In addition, please specify: Present on Admission (POA): [ x ] Yes [ ] No [ ] Unable to determine For continuity of documentation, please document condition throughout progress notes and discharge summary. Thank You. CLINICAL INDICATORS - SIGNS / SYMPTOMS / LABS / RESULTS AND LOCATION IN EMR "ACUTE ON CHRONIC HEART FAILURE" (H&P 06/13) BNP 06/13: 3764.7 RISKS: CKD STAGE 4 (PROGRESS NOTE 06/15) H/O CAD (PROGRESS NOTE 06/15) H/O ISCHEMIC CARDIOMYOPATHY (CARDIOLOGY PROGRESS NOTE 06/14) VENTRICULAR TACHYCARDIA (CARDIOLOGY NOTE 06/14) TREATMENT: CARDIOLOGY CONSULT 06/13 COREG (06/13-PRESENT) LASIX (06/14-PRESENT) IMDUR ER (06/14-PRESENT) FLUID RESTRICTION (06/13-PRESENT) [employer] Investigator [employer] Winform Viewer (This form is maintained as a part of the permanent medical record) 2014 [employer]. All Rights Reserved RITCHIE [email or web address] Office: [phone] INTERFA[facility] MEDICAL CENTERMattie
[2019-06-16 11:55] VITALS: BP 117/59; TEMP 97.5
--- NOTE | 2019-06-16 15:42 | PDOC.EP ---
- Subjective Date: 06/16/19 Time: 08:00 Interval History: follow up for VT and ICD management. Amidarone loading continues. Patient eager go home. Feels well. - Review of Systems Constitutional: denies: chills, fever, malaise, sweats, weakness, other Respiratory: denies: cough, dry, hemoptysis, pleuritic pain, shortness of breath , SOB with excertion, sputum, wheezing, other Cardiology: denies: chest pain, edema, heart racing, light headedness, paroxysmal noc. dyspnea, orthopnea, palpitations, passing out, pleuritic pain, pressure, swelling, other Gastrointestinal: denies: abdominal pain, constipation, diarrhea, hematochezia, melena, nausea, vomitting, other - Objective Allergies/Adverse Reactions: Allergies Allergy/AdvReac Type Severity Reaction Status Date / Time ciprofloxacin [From Cipro] Allergy Severe Nausea Verified 06/14/19 12:21 Vital Signs & Weight: Vital Signs Temp Pulse Resp BP BP Pulse Ox 06/16/19 11:51 97.5 F L 57 L 22 H 117/59 L 97 06/16/19 07:36 97.9 F 60 18 134/72 96 06/16/19 04:00 98.6 F 60 23 H 138/81 92 L Weight 193 lb 4.8 oz I/O: I/O 06/15/19 06/16/19 06/17/19 06:59 06:59 06:59 Intake Total 800 1660.2 Output Total 560 1250 Balance 240 410.2 - Physical Exam General: alert & oriented x3, appears well, no apparent distress, speech clear, affect appropriate HEENT: mucus membranes moist, normocephaly Neck: supple neck, midline trachea, no JVD/HJR Cardiology: regular rate and rhythm, no murmur Lungs: clear to auscultation, normal breath sounds, no rhonchi Neurology: cranial nerve 2-12 intact, grossly intact, coordination normal Abdomen: unremarkable, active bowel sounds, HJR negative - Labs Result Diagrams: 06/15/19 04:31 06/16/19 04:28 - EKG Interpretation EKG Method: Telemetry EKG shows: Sinus rhythm - Assessment/Plan Assessment/Plan: 1. Fast ventricular tachycardia with cycle length 210 to 240 milliseconds, prompting ICD shock. 2. History of chronic systolic congestive heart failure with ischemic cardiomyopathy. a. 2D echo from 12/15/2018 reveals LVEF 15% to 20%, mild LVH, mild MR, moderate left atrial enlargement, mild TR. b. Currently he has elevated BNP, possible fluid overload. c. CABG x2 vessels in 2009. 3. Peripheral vascular disease. a. Poorly healing ulcers with right BKA. b. Advanced distal disease on angiogram, 09/20/2018, bilaterally. 4. Status post single-chamber ICD implant on February 06, 2019, of [facility] [employer] device. 5. Renal insufficiency with a BUN 23 and creatinine 2.7 in December 2018 and currently at baseline. 6. Hypertension. Rhythm remains stable. PVCs and rare short NSVT runs continue. No sustained events or defibrillations required. OK for DC by EP. Continue OP amiodarone loading, agree with prescribed taper. QT ~400msec
--- NOTE | 2019-06-16 18:39 | DIS ---
DATE OF ADMISSION: 06/14/2019 DATE OF DISCHARGE: 06/16/2019 RESIDENT: Albert Coles MD ADMITTING ATTENDING: Brian Moon MD DISCHARGE ATTENDING: Brian Moon MD. CONSULTS: 1. Electrophysiology, Dr. Sullivan. 2. Cardiology, Dr. Mcgrath. PROCEDURES: Chest x-ray on 06/14/2019, demonstrating no acute cardiopulmonary process. PRIMARY DIAGNOSES: Acute hypoxic respiratory failure secondary to acute on chronic heart failure with reduced ejection fraction and ventricular tachycardia status post AICD shock, resolved. SECONDARY DIAGNOSES: 1. Insulin-dependent type 2 diabetic. 2. Chronic kidney disease 4. 3. Chronically elevated troponin. 4. Multiple admissions, poor compliance and worsening of chronic conditions. 5. Hypertension. 6. Hyperlipidemia. 7. Coronary artery disease status post CABG. 8. Microcytic anemia. DISCHARGE MEDICATIONS: 1. Amiodarone 400 mg p.o. b.i.d. x7 days, to then decrease to 200 mg p.o. daily. 2. Isosorbide mononitrate 30 mg p.o. daily. 3. Plavix 75 mg p.o. daily. 4. MiraLAX 17 g p.o. daily p.r.n. 5. Gabapentin 300 mg p.o. b.i.d. 6. Fenofibrate 145 mg p.o. daily. 7. Lantus 20 units subcu at bedtime. 8. Coreg 6.25 mg p.o. b.i.d. 9. Atorvastatin 80 mg p.o. at bedtime. 10. Sevelamer 800 mg p.o. t.i.d. 11. Protonix 20 mg p.o. daily. 12. Lasix 40 mg p.o. daily. 13. Aspirin 81 mg p.o. daily. DISCONTINUED MEDICATIONS: Toprol-XL 25 mg p.o. daily. HISTORY OF PRESENT ILLNESS AND HOSPITAL COURSE: The patient is a 58-year-old male with history of right BKA, CABG in 2018, hypertension, hyperlipidemia, diabetes , and CKD 4, who recently had AICD placed 4 months ago, who presented for AICD firing. He said he was woken up twice due to his defibrillation. He states that he has had increased worsening shortness of breath in the emergency department and slight increasing of his left lower extremity edema. He denied any chest pain. AICD was interrogated, which revealed ventricular tachycardia. The patient was admitted to telemetry for further monitoring and Electrophysiology and Cardiology were consulted. The patient has acute hypoxic respiratory failure secondary to acute on chronic CHF, improved with IV Lasix and ultimately, the patient was transitioned back to his p.o. home Lasix dose of 40 mg daily. His ventricular tachycardia status post AICD shock was suspected to be secondary to his cardiomyopathy and EP was consulted. EP recommended continued amiodarone and Cardiology recommendations. The patient is well known to Dr. Mcgrath who came and saw the patient, who placed the patient on a amiodarone loading drip that was transitioned to p.o. 400 mg b.i.d. for 7 days, to then decrease to 200 mg p.o. daily and follow up as an outpatient. The patient was monitored on telemetry and had only occasional PVCs and no other acute events. The patient initially requiring supplemental O2; however, on the last 2 days of hospitalization, had been weaned to room air. The patient had initial elevation in his BNP to 3764 and a chest x-ray with mild pulmonary edema. Again, he was initially placed on IV Lasix with some improvement of his fluid status and at the time of discharge, appeared to be euvolemic. All other heart failure medications were continued as regular. Insulin-dependent type 2 diabetic: The patient was placed on hyperglycemic protocol and appears to be noncompliant at times with medications. He agrees with this and states that he will be compliant in the future. The patient home insulin regimen with adequate control of his blood glucose. The patient was also noticed to have a slight worsening of his CKD 4 with GFR of 19 at the time of discharge. A long discussion was had with the patient that he is moving toward dialysis. The patient has not decided if he would like to pursue dialysis or not. He has had multiple admissions, poor compliance with medications and worsening of his chronic medical conditions, thus Palliative Care was consulted to assist with goals of care. At this time, the patient would like to continue with aggressive treatment; however, we will continue to have discussions with him and his regarding goals of care and ultimately if he should want dialysis in the future. It is recommended strongly the patient follow up with Dr. Rodriguez within a week of discharge to have further discussions of this. The patient also has a chronic elevation of troponin at 0.063; at discharge, it was trended down to 0.048. The patient did not have any chest pain or acute EKG changes. The patient's other chronic medical conditions were controlled with his continued home medications. At the time of discharge, the patient was doing very well. He appeared euvolemic on exam and discharge instructions were discussed at detail with the patient. He voiced agreement and understanding of appropriate titration of the amiodarone and appropriate followup as an outpatient. The patient did not have any other acute events on telemetry and was very eager to be discharged home. All questions were answered appropriately. The patient was discharged with appropriate followup. DISPOSITION: Stable. DISCHARGE INSTRUCTIONS: 1. Location: Home. 2. Diet: Heart healthy, fluid-restricted 1800 mL per day and carb consistent. 3. Activity: Tolerated. 4. Followup: The patient to follow up with Dr. Rodriguez, his bow maker production within one week of discharge. The patient to follow up with Dr. Mcgrath within 1-2 weeks as previously directed. The patient to follow up with his primary care physician, Dr. Moon within 2 weeks of discharge. Job ID: [id number] [facility]
--- NOTE | 2019-06-18 13:14 | EKG ---
Test Reason : Blood Pressure : / mmHG Vent. Rate : 086 BPM Atrial Rate : 086 BPM P-R Int : 180 ms QRS Dur : 118 ms QT Int : 398 ms P-R-T Axes : 052 071 254 degrees QTc Int : 476 ms Undetermined rhythm Inferior infarct , age undetermined Abnormal ECG Confirmed by NEIL SHAH ([id number]), supervising editor trailer ZAINAB BARNES ([id number]) on 06/18/2019 1:14:37 PM Referred By: Confirmed By:NEIL SHAH
== END 2019-06-16 13:25 | disposition home or self-care (01) | DRG 291 ==
LOC: ERS 02:02 → ERHOLD 04:35 → 2NO 10:58
PROVIDERS: ADMIT Family Medicine; ATTEND Family Medicine
DX: I13.0 Hypertensive heart and chronic kidney disease with heart failure and stage 1 through stage 4 chronic kidney disease, or unspecified chronic kidney disease (principal); J96.01 Acute respiratory failure with hypoxia; I50.23 Acute on chronic systolic (congestive) heart failure; N18.4 Chronic kidney disease, stage 4 (severe); I47.2 Ventricular tachycardia; I24.8 Other forms of acute ischemic heart disease; N17.9 Acute kidney failure, unspecified; E11.22 Type 2 diabetes mellitus with diabetic chronic kidney disease; D63.1 Anemia in chronic kidney disease; F17.210 Nicotine dependence, cigarettes, uncomplicated; E78.5 Hyperlipidemia, unspecified; I25.5 Ischemic cardiomyopathy; I25.10 Atherosclerotic heart disease of native coronary artery without angina pectoris; G40.909 Epilepsy, unspecified, not intractable, without status epilepticus; Z86.73 Personal history of transient ischemic attack (TIA), and cerebral infarction without residual deficits; Z95.1 Presence of aortocoronary bypass graft; Z89.511 Acquired absence of right leg below knee; Z79.4 Long term (current) use of insulin; Z88.1 Allergy status to other antibiotic agents; Z88.8 Allergy status to other drugs, medicaments and biological substances
CPT/HCPCS: 36415; 36416; 71045; 80048; 80053; 82550; 82553; 83735; 83880; 84100; 84484; 85025; 93005; 93798; 94760; 96365; 96366; 96376; J0282; J1815; J1940; J7070